=== PATIENT | female | born 1935 | race Caucasian/White ===

== ENCOUNTER 2016-07-19 07:36 | Day surgery (SDC) | payer OTHER ==
[2016-07-18 14:21] VITALS: BMI 20.7
[2016-07-19 10:04] VITALS: TEMP 97.5
[2016-07-19 12:40] VITALS: BP 122/61; PULSE 71
--- NOTE | 2016-07-20 12:10 | PATH ---
Surgical Pathology Report Patient Name: AMEENA OLVERA [facility]. Rec. #: [id number] /Age/Gender: 1935 (Age: 81) / F Account: [id number] Location: U-ENDOSCOPY Taken: 07/19/2016 Received: 07/19/2016 Reported: 07/20/2016 Physicians: Davin Valles M.D. Specimen(s) Received A: BX RECTAL POLYP B: ASCENDING COLON POLYP/ILEOCECAL VALVE Clinical History Chronic constipation Colon polyps, diverticulosis Final Diagnosis A. RECTUM, POLYPS, BIOPSY: HYPERPLASTIC POLYPS. B. COLON, DESCENDING/ILEOCECAL VALVE, POLYP, BIOPSY AND POLYPECTOMY: MULTIPLE FRAGMENTS OF TUBULAR ADENOMA. Electronically Signed Mason Martel M.D. Gross Description A. Received in formalin, labeled "biopsy rectal polyps" are 2 figueroa, irregular portions of soft tissue measuring 0.1 and 0.3 cm in greatest dimension. The specimens are submitted in toto in one cassette. B. Received in formalin, labeled "biopsy ascending colon polyp" is a 1.0 x 0.8 x 0.2 cm aggregate of figueroa soft tissue fragments. The formalin is filtered and the specimen is entirely submitted in one cassette. /07/19/201607/19/2016
== END 2016-07-19 11:30 | disposition home or self-care (01) ==
LOC: JASU-ENDO 07:36
PROVIDERS: ATTEND Internal Medicine Gastroenterology
PROC: 0DBF8ZX Excision of Right Large Intestine, Via Natural or Artificial Opening Endoscopic, Diagnostic (ICD-10-PCS; 2016-07-19)
PROC: 0DBC8ZX Excision of Ileocecal Valve, Via Natural or Artificial Opening Endoscopic, Diagnostic (ICD-10-PCS; principal; 2016-07-19 09:00)
DX: Z86.010 Personal history of colon polyps (principal); K63.5 Polyp of colon; K57.30 Diverticulosis of large intestine without perforation or abscess without bleeding; K64.8 Other hemorrhoids
CPT/HCPCS: 88305-TC

== ENCOUNTER 2018-10-18 08:47 | Day surgery (SDC) | payer OTHER ==
[2018-10-17 14:52] VITALS: BMI 21.6
[2018-10-18 10:48] VITALS: TEMP 97
[2018-10-18 11:56] VITALS: BP 121/61; PULSE 73
--- NOTE | 2018-10-21 16:17 | PATH ---
Surgical Pathology Report Patient Name: AMEENA OLVERA [facility]. Rec. #: [id number] /Age/Gender: 1935 (Age: 83) / F Account: [id number] Location: U-ENDOSCOPY Taken: 10/18/2018 Received: 10/18/2018 Reported: 10/21/2018 Physicians: Davin Valles M.D. Specimen(s) Received A: MID TRANSVERSE COLON B: ILEOCECAL VALVE Clinical History History of colon adenoma Postoperative diagnosis: Diverticuli, polyps Final Diagnosis A. MIDTRANSVERSE COLON POLYP, POLYPECTOMY: TUBULAR ADENOMA. B. ILEOCECAL VALVE POLYP, POLYPECTOMY: TUBULAR ADENOMA. Electronically Signed Nilson Velasquez M.D. Gross Description A. Received in formalin, labeled "biopsy mid transverse colon polyp" are 3 figueroa, irregular portions of soft tissue ranging from 0.2-0.4 cm. in greatest dimension. The specimens are submitted in toto in one cassette. B. Received in formalin, labeled "biopsy ileocecal valve polyp" is a figueroa, irregular portion of soft tissue measuring 0.4 cm. in greatest dimension. The specimen is submitted in toto in one cassette. 10/18/2018 saudi10/18/2018
== END 2018-10-18 12:24 | disposition home or self-care (01) ==
LOC: JASU-ENDO 08:47
PROVIDERS: ATTEND Internal Medicine Gastroenterology
PROC: 0DBL8ZX Excision of Transverse Colon, Via Natural or Artificial Opening Endoscopic, Diagnostic (ICD-10-PCS; 2018-10-18)
PROC: 0DBC8ZX Excision of Ileocecal Valve, Via Natural or Artificial Opening Endoscopic, Diagnostic (ICD-10-PCS; principal; 2018-10-18 09:45)
DX: Z12.11 Encounter for screening for malignant neoplasm of colon (principal); Z86.010 Personal history of colon polyps; K57.30 Diverticulosis of large intestine without perforation or abscess without bleeding; K63.89 Other specified diseases of intestine; D12.3 Benign neoplasm of transverse colon
CPT/HCPCS: 88305-TC